=== PATIENT | female | born 1995 | race Caucasian/White ===

== ENCOUNTER 2024-08-03 10:48 | Outpatient (REF) | payer OTHER, SELFPAY ==
--- NOTE | 2024-08-03 14:33 | MHC.AU.MED ---
Medical Clearance for Hearing Instrumentation Date: 08/03/24 Patient Name: Rico Olson Date of : 1995 Primary Care Provider: Pamela Pedro MD Referring Provider: Kalpana Ybarra PA-C We have seen your patient on 08/03/24 and have determined that they are a candidate for amplification (See accompanying report). Specifically, they would benefit from: Hearing aid use in both ears There is a statute that addresses Medical Evaluation Requirements prior to fitting a patient with a hearing aid. According to [place] statute 265 CMR:6.03(1), (a) General. Except as provided in 265 CMR 6.03(1)(b), a wool shearing supervisor shall not sell a hearing aid unless the prospective user has presented to the wool shearing supervisor a written statement signed by a licensed physician that states that the patient's hearing loss has been medically evaluated and the patient may be considered a candidate for a hearing aid. The medical evaluation must have taken place within the preceding six months. Please note: Due to the [place] Statute referenced above, we cannot accept a signature other than that of a licensed physician. HEIDE and PA signatures cannot be accepted. I am in agreement with the above recommendation. There is no medical contraindication for hearing instrumentation. Physician Signature Date Physician Name (Printed)
== END 2024-08-03 10:49 | disposition home or self-care (01) ==
LOC: HO.SH 10:48
PROVIDERS: PCP Internal Medicine; Visit Provider Physician Assistant
DX: Z01.118 Encounter for examination of ears and hearing with other abnormal findings (principal); H90.3 Sensorineural hearing loss, bilateral
CPT/HCPCS: 92557; 92567; 92588; 92591

== ENCOUNTER 2024-09-24 14:57 | Outpatient (REF) | payer OTHER, SELFPAY | END 2024-09-24 14:58 | disposition home or self-care (01) | LOC: HO.HAP 14:57 | PROVIDERS: Visit Provider Internal Medicine | DX: Z46.1 Encounter for fitting and adjustment of hearing aid (principal); H90.3 Sensorineural hearing loss, bilateral | CPT/HCPCS: V5011; V5020; V5160; V5261 ==

== ENCOUNTER 2025-02-05 11:04 | Outpatient (REF) | payer OTHER, SELFPAY ==
--- OUTSIDE RECORDS SUMMARY | 2025-02-05 12:10 | XMS_ITS | Encounter Summary ---
Author Organization [employer] Address [address] [place] [address] 7 [place] [address] Care Team Providers Care Efficiency Engineer Name Role Phone Unavailable Primary Care Provider Unavailabl e Reason for Visit * Reason Comments Dental Pain Pain LL. Recently re alized that pt is graining teeth. Believes there's a cavity forming due to possible fracture in the tooth. Pt an see the tooth darkening from the side and can see it from the occusal side. Encounter Details Date Type Department Care Team (Late st Contact Info) Description 02/04/2025 3:00 PM EDT Office Visit [facility] AD[facility] [address] [place] [address] Patricia Simpson DMD Social History Tobacco Use Types Packs/Day Years Used Date Smoking Tobacco: Never Assessed Comments Unknown Sex and Gender Information Value Date Recorded Sex Assigned at Female 08/06/2022 10:31 AM EDT Legal Sex Female 10:31 AM EDT Gender Identity Female 08/06/2022 10:31 AM EDT Sexual Orientation Straight 08/06/2022 10 :31 AM EDT documented as of this encounter Last Filed Vital Signs Vital Sign Reading Time Taken Comments Blood Pressure 100/70 02/04/2025 3:25 PM EDT Pulse - - Temperature - - Respiratory Rate - - Oxygen Saturation - - Inhaled Oxygen Concentration - - Weight - - Height - - Body Mass Index - - documented in this encounter Progress Notes * Patricia Simpson DMD - 02/04/2025 3:00 PM EDT Dental procedures in this visit D0140 - LIMITED ORAL EVALUATION - PROBLEM FOCUSED 19 (Completed) Service provider: Patricia Simpson DMD Billing provider: Akash Gong DDS [id number] - INTRAORAL - PERIAPICAL FIRST RADIOGRAPHIC IMAGE 19 (Completed) Service provider: Patricia Simpson DMD Billing provider: Akash Gong DDS [id number] - BITEWING - SINGLE RADIOGRAPHIC IMAGE (Completed) Service provider: Patricia Simpson DMD Billing provider: Akash Gong DDS [id number] - CASE PRESENTATION, DETAILED AND EXTENSIVE TREATMENT PLANNING (Completed) Service provider: Patricia Simpson DMD Billing provider: Akash Gong DDS Patient ID: Rico Olson is a 29 y.o. female. Time Out: Date: 02/04/2025 Location: [facility] Tooth: #19 Procedure: Exam and X-rays Verified the above with patient, assistant professor of nursing, and provider. Confirmed via patient's chart, intraorally and by radiographs. Car Inspector: not applicable 29 y.o. y/o female presents for limited exam with Dr. Patricia Simpson DMD Medical history: Reviewed in EHR Vitals: Blood pressure 100/70. Allergies: Reviewed in EHR Medications: Reviewed in EHR Radiographs taken: BW and PA CHIEF COMPLAINT: My tooth hurts at night and there is a black dot I think I have a cavity. Discussion: Patient presents to [facility] RE: tooth #19. Patient reports there is a black dot on the tooth and believes she has a cavity. Patient states the pain has been developing for the last few days. Clinical and radiographic examination shows MO caries on tooth #19 approximating the pulpal tissue. Slight pain on palpation. Pain on percussion of MB cusp. No intraoral swelling, sinus tracts or trouble breathing. Widening of PDL noted and no evidence of PARL. Recommended caries control and likely RCT on tooth #19. Due to complexity of canals, recommended caries control be performed on a Saturday while Dr. Moon is present. Patient understands and accepts all treatment recommendations and wishes to move forward with proposed treatment plan. All patient questions answered. Patient comfortable upon dismissal. RX: Acetaminophen and Ibuprofen NV: Caries Control / RCT #19 Provider: Dr. Patricia Simpson DMD Dental Master Of Ceremonies: Aundrea Avalos Attending: Dr. Akash Gong DDS * Akash Gong DDS - 02/04/2025 3:00 PM EDT Reviewed and signed. documented in this encounter Plan of Treatment Upcoming Encounters Date Type Department Care Team (Late st Contact Info) Description 02/15/2025 8:00 AM EDT Office Visit [facility] [address] [place] [address] Patricia Simpson DMD Scheduled Orders Name Type Priority Associated Diagnoses Orde r Schedule 19 MO 19 MO RESIN-BASED COMPOSITE - 2 SURF, POSTERIOR Dental Routine [address] arting 02/04/2025 19 19 ENDODONTIC THERAPY, MOLAR TOOTH Dental Routine 1 Occurrenc es starting 02/04/2025 documented as of this encounter Procedures Procedure Name Priority Date/Time Associated Diagnosis Comments 19 LIMITED ORAL EVALUATION - PROBLEM FOCUSED Routine 02/04/2025 3:00 PM EDT 19 INTRAORAL - PERIAPICAL FIRST RADIOGRAPHIC IMAGE Routine 02/04/2025 3:00 PM EDT CASE PRESENTATION, DETAILED AND EXTENSIVE TREATMENT PLANNING Routine 02/04/2025 3:00 PM EDT BITEWING - SINGLE RADIOGRAPHIC IMAGE Routine 02/04/2025 3:00 PM EDT documented in this encounter Visit Diagnoses Not on filedocumented in this encounter
--- OUTSIDE RECORDS SUMMARY | 2025-02-05 12:10 | XMS_ITS | Data Portability ---
Author Organization [place] - [facility], Allergy Address [address] [place] [address] Care Team Providers Care Volleyball Commentator Name Role Phone TRACEY CORDOVA Primary Care Provider [phone] Assessment Encounter Date Assessment Date Assessment LastModified by Organization Details LastModified Time 01/06/2025 01/06/2025 29yo female with sensorineural hearing loss and amplification presents for evaluation of the ears. She reports gradual hearing loss over 3 years, since khurram COVID-19. She reports intermittent bilateral otalgia, tinnitus, and room-spinning dizziness. TMs are normal to inspection. Audiometric testing demonstrates symmetrical normal sloping to severe sensorineural hearing loss with normal tympanometry. MRI of the IACs is not indicated as SNHL is symmetrical and otologic symptoms are bilateral. patient declined Sm[place]-Hallpike maneuver today, as it induces disequilibrium for 1-2 days. History is consistent with BPPV. Will refer patient to [facility] for vestibular rehabilitation. Discussed that her intermittent otalgia is consistent with underlying TMJ. Reviewed TMJ precautions and recommended soft food diet and mouthguard. Patient will return to [facility] for hearing aid adjustment. She will follow-up in 6 months for reevaluation with hearing test first. [email or web address] Not available 01/06/2025 12:12:49 Plan of Treatment Reminders Order Date Submit Date Provider Last Modified By Organization Details Last Modified Time Details Appointments Hearing Test 2024 10:30A M Hearing Test Not available Not available Not available Establish ed 15 2024 11:00A M LISA ELLIOTT PA-C Not available Not available Not available Lab None recorded. Referral vestibula r therapy referral 2024 025 [facility] Physical Therapy - [place], [address], 01/06/2025 12:24:58 Procedures None recorded. Surgeries None recorded. Imaging None recorded. Medication Orders None recorded. Patient TargetsNo targets recorded. Patient InstructionsNo instructions recorded. Reason for Referral Vestibular Therapy Referral for Benign paroxysmal positional vertigo Referring Physician: Lisa Elliott, Otolaryngology, Encounter Date: 01/06/2025 Results Created Date Observation Date Name Description Value Unit Range Abnormal Flag Note LastModifiedBy Organization Detail LastModifiedTime 01/07/20 audio gram No observ ation record ed. BARCODE Not Available 2024 17:50:59 Result Notes None recorded. Problems Name Problem SNOMED Code Status Onset Date Resolution Date Notes Provider Name and Address Organization Details Recorded Time Sensorineur al hearing loss 96462224 Active 2024 Delores bryant [place] - [facility] 11:06:30 Benign paroxysmal positional vertigo 557212366 Active 2024 LISA ELLIOTT PA-C [address] [place] [address], [place], [phone], [facility] - [facility] 11:52:38 Bilateral tinnitus 0367007971559 Active 2024 LISA ELLIOTT PA-C [address] [place] [address], [place], [phone], [facility] - [facility] 12:04:57 Problem Notes None recorded. Procedures Surgical History Date Name Laterality Status Provider Name and Address Organization Details Recorded Time 01/06/2025 Comp Audio with Tymps (18506 & 75809) completed Delores Cadena [place] - [facility] 01/06/2025 11:06:25 Imaging Results Imaging Date Name Status LastModified by Organiz ation Details LastModified Time 01/06/2025 audiogram completed BARCODE Information no t available 01/06/2025 17:50:59 Procedure Notes None recorded. Medical Equipment None Reported. Allergies No known drug allergies Medications Name Sig Start Date Stop Date Status Note LastModified by Organization Details LastModified Time lamotrigine 150 mg tablet TAKE 1 TABLET BY MOUTH ONCE A DAY AT BEDTIME active Not Available Not Available No t Available fluconazole 150 mg tablet TAKE ONE TABLET TODAY AND REPEAT IN 3 DAYS IF NO IMPROVEMENT active Not Available Not Available Not Available clonazepam 0.5 mg tablet TAKE 1 TABLET BY MOUTH DAILY NEEDED FOR ANXIETY DIRECTED active Not Available Not Available Not Available venlafaxine ER 150 mg capsule,exte nded release 24 hr TAKE 1 CAPSULE BY MOUTH EVERY DAY IN THE MORNING DIRECTED active Not Available Not Available No t Available Vitals Date Recorded Body height Body mass index (BMI) Body weight Provider Name and Address Organization Details Last Updated DateTime 01/06/2025 162.56 cm 34 kg/m2 99181.29 g SAMIA ALMARAZ [place] - [facility] 01/06/2025 11:15:33 Social History Question Answer Notes LastModified by Organizat ion Details LastModified Time Tobacco Smoking Status Never Smoker SAMIA bryant [place] - [facility] 01/06/2025 11:14:18 What Is Your Level Of Alcohol Consumption? None [email or web address] Information not available 01/06/2025 Sex: Unknown Functional Status None recorded. Mental Status None recorded. Family History Nothing Reported. Medical History No medical history recorded. Gynecological HistoryNo gynecological history recorded. Obstetrics History GPAL:G 0 P 0 0 0 0 Past Encounters Encounter ID Performer Location Encounter Start Date Encounter Closed Date Diagnosis/Indication Diagnosis SNOMED-CT Code Diagnosis ICD10 Code Diagnosis Note [id number] LISA ELLIOTT PA-C [facility] [address] [address] 01/06/2025 10:30:54 01/06/2025 11:58:51 Sensorineural hearing loss 81579098 H90.5 Audiologic al evaluation results: Right ear: {{Normal* Normal through 2 kHz Mild M oderate Mo derately-s evere Cass re Profoun d}} {{hearing hearing. s loping to a mild slopi ng to a moderate s loping to moderately severe slo ping to severe* sl oping to profound f lat high frequency low frequency mid frequency cookie bite fernandez curve}} {{with sen sorineural hearing loss with* cond uctive hearing loss with mixed hearing loss with}} {{excellen t* good fa ir poor no measurable }} word recognitio n. Left ear: {{Normal* Normal through 2 kHz Mild M oderate Mo derately-s evere Cass re Profoun d}} {{hearing hearing. s loping to a mild slopi ng to a moderate s loping to moderately severe slo ping to severe slo ping to profound* flat high frequency low frequency mid frequency cookie bite fernandez curve}} {{with sen sorineural hearing loss with* cond uctive hearing loss with mixed hearing loss with}} {{excellen t* good fa ir poor no measurable }} word recognitio n. Tympanomet ry: Right Ear:{{Type A* Type A with rounded peak Type A with double peak Type As Type As with rounded peak Type Ad Type C Type C, shallow & rounded peak Type B Type B with large volume Cou ld not maintain a hermetic seal}} Left Ear:{{Type A* Type A with rounded peak Type A with double peak Type As Type As with rounded peak Type Ad Type C Type C, shallow & rounded peak Type B Type B with large volume Cou ld not maintain a hermetic seal}} Benign par oxysmal positional vertigo 221890885 H81.10 The pathophysi ology of BPPV was discussed in detail. Patient was provided with a referral to [facility] for Daniel maneuvers and vestibular therapy. We discussed the fact that treatment of BPPV can require anywhere from 1 to 6 treatments for successful results, and has approximat davis 95% success rate in eliminatin g symptoms. BPPV can recur and if the classic positional ly induced symptoms do recur, patient can call for further referrals. Bilateral tinnitus [id number] [id number] H93.13 Health Concerns Section Related Observation LastModified by Organization Detai ls LastModified Time None Recorded Concern Status LastModified by Organization Details LastModified Time None Recorded Advance Directives Directive None Recorded Payers Encounter Date Sequence Insurance Name Policy Number Policy Barnes Covered Member ID Barnes Member ID Guarantor Name 01/06/2025 1 [facility] - [facility] (MEDICAID REPLACEMENT - HMO) CHUY Sumeyye Elevli [id number] Sumeyye Elevli Notes Date Note Type Note Provider Name and Address Organization Details Recorded Time 01/06/2025 text/html 29yo female with amplification presents for evaluation of the ears. She reports gradual hearing loss over 3 years, that started when she contracted COVID-19. Her current hearing aids were dispensed by [facility]. She reports intermittent ear pain and tinnitus bilaterally. She reports history of benign paroxysmal positional vertigo. She describes the sensation as room-spinning dizziness. Her disequilibrium lasts 1-2 days and she has associated wooziness and nausea. Patient denies ear drainage. No prior history of ear infections or ear surgeries. No history of loud noise exposure. No known family history of hearing loss. No Qtip use. LISA ELLIOTT PA-C [address] [place] [address], [phone], [facility] - [facility] 01/06/2025 12:13:24 OBGyn Episode No OBEpisode recorded.
--- OUTSIDE RECORDS SUMMARY | 2025-02-05 12:10 | XMS_ITS | Encounter Summary ---
Author Organization [employer] Address [address] [facility] 7 [place] [address] Care Team Providers Care Cooky Packer Name Role Phone Unavailable Primary Care Provider Unavailabl e Encounter Details Date Type Department Care Team (Latest Contact Info) Description 11/12/2018 Abstract [facility] CONVERSIONS Dental, Provider, DDS Social History Tobacco Use Types Packs/Day Years Used Date Smoking Tobacco: Never Assessed Comments Unknown Sex and Gender Information Value Date Recorded Sex Assigned at Female 08/06/2022 10:31 AM EDT Legal Sex Female 10:31 AM EDT Gender Identity Female 08/06/2022 10:31 AM EDT Sexual Orientation Straight 08/06/2022 10 :31 AM EDT documented as of this encounter Plan of Treatment Upcoming Encounters Date Type Department Care Team ( st Contact Info) Description 02/15/2025 8:00 AM EDT Office Visit [facility] ADULT DENTAL [address] [place] [address] Patricia Simpsno DMD documented as of this encounter Visit Diagnoses Not on filedocumented in this encounter
--- OUTSIDE RECORDS SUMMARY | 2025-02-05 12:10 | XMS_ITS | Clinical Summary ---
Author Organization [employer] Address [address] [place] [address] 7 [place] [address] Care Team Providers Care Wall Steamer Name Role Phone Unavailable Primary Care Provider Unavailabl e Allergies No known active allergies Medications lamoTRIgine (LaMICtal) 150 MG tablet TAKE 1 TABLET BY MOUTH ONCE A DAY AT BEDTIME 04/24/2023 Active venlafaxine XR (Effexor XR) 150 MG 24 hr capsule 1 CAPSULE DIRECTED EVERY MORNING 04/28/2023 Active acetaminophen (Tylenol) 500 MG tablet Take 1 tablet (500 mg) by mouth every 6 (six) hours if needed for mild pain for up to 20 doses. 20 tablet 02/04/2025 Active ibuprofen 600 MG tablet Take 1 tablet (600 mg) by mouth every 6 (six) hours if needed for mild pain for up to 20 doses. 20 tablet 02/04/2025 Active Active Problems Problem Noted Date Diagnosed Date Sensorineural hearing loss 01/06/2025 Bilateral tinnitus 01/06/2025 Benign paroxysmal positional vertigo 01/06/2025 Vitamin D insufficiency 03/20/2022 Obesity (BMI 30.0-34.9) 03/20/2022 Pneumonia due to COVID-19 virus 07/06/2021 Overview (02/04/2025): 05/27 with acute respiratory failure Depression 07/02/2016 Anxiety 07/02/2016 Shoulder pain, bilateral 12/21/2014 Back pain of thoracolumbar region 12/21/2014 Encounters Date Type Department Care Team Description 02/04/2025 3:00 PM EDT Office Visit [facility] ADULT DENTAL [address] [place] [address] Patricia Simpson DMD 12/11/2024 Telephone [facility] ADULT DENTAL [address] [place] [address] Owen Fox unable to post insurance from Last 3 Months Social History Tobacco Use Types Packs/Day Years Used Date Smoking Tobacco: Never Assessed Comments Unknown Sex and Gender Information Value Date Recorded Sex Assigned at Female 08/06/2022 10:31 AM EDT Legal Sex Female 10:31 AM EDT Gender Identity Female 08/06/2022 10:31 AM EDT Sexual Orientation Straight 08/06/2022 10 :31 AM EDT Last Filed Vital Signs Vital Sign Reading Time Taken Comments Blood Pressure 100/70 02/04/2025 3:25 PM EDT Pulse - - Temperature - - Respiratory Rate - - Oxygen Saturation - - Inhaled Oxygen Concentration - - Weight - - Height - - Body Mass Index - - Plan of Treatment Upcoming Encounters Date Type Department Care Team (Late st Contact Info) Description 02/15/2025 8:00 AM EDT Office Visit [facility] ADULT DENTAL [address] [place] [address] Patricia Simpson DMD Health Maintenance Due Date Last Done Comments Depression Screening 1996 HIV Screening 1996 SDOH Screening 1996 Alcohol/Substance Use Screening 2008 Tobacco Screening 2008 Family Planning (PISQ) 2011 Hepatitis C Screening 2014 Pap Smear 2017 Dental X-Ray: Full Mouth 12/27/2021 12/26/2018, 11/07 Dental Oral Exam 09/12/2022 03/12/2022, 03/2019, 08/27/2017, Additional history exists Dental Prophylaxis 09/12/2022 03/12/2022, 09/18/2017 COVID-19 Vaccine ( season) 2024 10/08/2021, 09/17/2021 Influenza Vaccine (#1) 2024 DTaP/Tdap/Td Vaccines (7 - Td or Tdap) 10/10/2025 10/10/2015, 06/11/2001, 05/21/1998, Additional history exists Dental X-Ray: Bitewings 02/05/2026 02/05/20, 03/12/2022, 11/12/2018, Additional history exists Zoster Vaccines (1 of 2) 2046 RSV Patients and Patients Aged 60 years or older (1 - 1-dose 75+ series) 2071 IPV Vaccines Completed 05/21/1998, 05/07, 03/21/1997, Additional history exists Hepatitis B Vaccines Completed 03/23/2002, 12/24/2001, 07/31/2001 Meningococcal Vaccine Completed 10/10/2015, 013 HIB Vaccines Aged Out No longer eligi ble based on patient's age to complete this topic HPV Vaccines Aged Out No longer eligi ble based on patient's age to complete this topic Hepatitis A Vaccines Aged Out No long er eligible based on patient's age to complete this topic Pneumococcal Vaccine: Pediatrics (0 to 5 Years) and At-Risk Patients (6 to 49) Years) Aged Out No longer eligible based on patient's age to complete this topic RSV under 20 months Aged Out No longe r eligible based on patient's age to complete this topic Rotavirus Vaccines Aged Out No longer eligible based on patient's age to complete this topic Procedures Procedure Name Priority Date/Time Associated Diagnosis Comments CASE PRESENTATION, DETAILED AND EXTENSIVE TREATMENT PLANNING Routine 02/04/2025 3:00 PM EDT BITEWING - SINGLE RADIOGRAPHIC IMAGE Routine 02/04/2025 3:00 PM EDT 19 INTRAORAL - PERIAPICAL FIRST RADIOGRAPHIC IMAGE Routine 02/04/2025 3:00 PM EDT 19 LIMITED ORAL EVALUATION - PROBLEM FOCUSED Routine 02/04/2025 3:00 PM EDT PROPHYLAXIS - ADULT Routine 03/12/2022 1 2:00 AM EDT PERIODIC ORAL EVALUATION - ESTABLISHED PATIENT Routine 03/12/2022 12:00 AM EDT PANORAMIC RADIOGRAPHIC IMAGE Routine 12/26/2018 12:00 AM EDT from Last 3 Months or Most Recently Relevant to Health Maintenance [facility] DENT[facility] - [facility] PARTIAL (MEDICAID) DENTAL - [facility] FULL (MEDICAID)
--- OUTSIDE RECORDS SUMMARY | 2025-02-05 12:10 | XMS_ITS | Encounter Summary ---
Author Organization [employer] Address [address] [place] [address] [address] [place] [address] Care Team Providers Care Cert Pharmacy Tech Name Role Phone Unavailable Primary Care Provider Unavailabl e Reason for Visit * Reason Onset Date Comments unable to post insurance 12/11/2024 Encounter Details Date Type Department Care Team (Late st Contact Info) Description 12/11/[address] [facility] ADULT DENTAL [address] [place] [address] Owen Fox [address] [place], [place] [phone] unable to post insurance Social History Tobacco Use Types Packs/Day Years Used Date Smoking Tobacco: Never Assessed Comments Unknown Sex and Gender Information Value Date Recorded Sex Assigned at Female 08/06/2022 10:31 AM EDT Legal Sex Female 10:31 AM EDT Gender Identity Female 08/06/2022 10:31 AM EDT Sexual Orientation Straight 08/06/2022 10 :31 AM EDT documented as of this encounter Miscellaneous Notes * Telephone Encounter - Lakshmi Self - 12/11/2024 10:18 AM EST Patient has a 1pm emergency visit. Unable to post insurance. portal not running on PAR side documented in this encounter Plan of Treatment Upcoming Encounters Date Type Department Care Team (Late st Contact Info) Description 02/15/2025 8:00 AM EDT Office Visit [facility] ADULT DENTAL [address] [place] [address] Patricia Simpson DMD documented as of this encounter Visit Diagnoses Not on filedocumented in this encounter
--- OUTSIDE RECORDS SUMMARY | 2025-02-05 12:10 | XMS_ITS | Encounter Summary ---
Author Organization [employer] Address [address] [facility] [address] [place] [address] Care Team Providers Care Adhesive Sprayer Name Role Phone Unavailable Primary Care Provider Unavailabl e Encounter Details Date Type Department Care Team (Latest Contact Info) Description 03/12/2022 Abstract [facility] CONVERSIONS Dental, Provider, DDS Social History Tobacco [...] Description 02/15/2025 8:00 AM EDT Office Visit [facility] ADULT DENTAL [address] [place] [address] Patricia Simpson DMD documented as of this encounter Visit Diagnoses Not on filedocumented in this encounter
--- OUTSIDE RECORDS SUMMARY | 2025-02-05 12:10 | XMS_ITS | Clinical Summary ---
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 Active venlafaxine XR (EFFEXOR-XR) 150 mg 24 hr capsule Take 1 capsule (150 mg total) by mouth 1 (one) time each day. Active cholecalciferol (VITAMIN D-3) 25 mcg (1,000 unit) tablet Take by mouth. Ac tive cyanocobalamin, vitamin B-12, (VITAMIN B-12 ORAL) Take by mouth. Activ e clonazePAM (KlonoPIN) 0.5 mg tablet 6 Active fluconazole (Diflucan) 150 mg tablet Take one tablet today and Repeat in 3 days if no improvement 2 tablet 5 Active Active Problems Problem Noted Date Diagnosed Date Obesity (BMI 30.0-34.9) 03/20/2022 Vitamin D insufficiency 03/20/2022 Pneumonia due to COVID-19 virus 07/06/2021 Overview (08/10/2024): 05/27 with acute respiratory failure Anxiety 07/02/2016 Depression 07/02/2016 Back pain of thoracolumbar region 12/21/2014 Shoulder pain, bilateral 12/21/2014 Encounters Date Type Department Care Team Description 01/18/2025 Telephone Obstetrics & Gynecology - [address] [phone] Amelie Peace CNM Pelvic Pain 12/10/2024 8:45 AM EST Office Visit Obstetrics & Gynecology - [address] [phone] Amelie Peace CNM Acute vaginitis (Primary Dx); Pelvic pain 12/08/2024 Telephone Obstetrics and Gynecology [address] [phone] Carol Edwards MD Vaginal Discharge from Last 3 Months Immunizations Name Administration Dates Next Due DTaP (Infanrix) 6wks to less than 7yo ,05/21/1998,05/21/1997,03/21,1996 Hepatitis B Pediatric (Enger ix B; Recombivax HB) to less than 20 yo 03/23/2002,12/24/2001,07/31/2001 IPV Inactivated polio (Ipol) 6wks and older 05/21/1998,05/21/1997,03/21/1997,12/19 MMR, measles mumps and rubel la Live (Priorix; M-M-R II) 12mo and older 06/11/2001,06/07/1998 Meningococcal MCV4P 10/10/2015,08/20/2013 Fios SARS-CoV-2 COVID-19, mRNA, LNP-S, preservative free 10/08/2021,09/17/2021 Tdap Tetanus diptheria acell ular pertussis (Boostrix; Adacel) 7yo and older 10/10/2015 Varicella live (Varivax) 12m o and older 08/20/2013,06/11/2001 Surgical History Surgery Date Site/Laterality Comments NO PAST SURGERIES Medical History Medical History Date Comments Pneumonia due to COVID-19 virus 07/06/202105/27 with acute respiratory failure Depression 07/02/2016 Vitamin D insufficiency 03/20/2022 Anxiety 07/02/2016 Family History Relation Name Status Comments Father Alive Maternal Grandfather Alive Maternal Grandmother Alive Mother Alive Paternal Grandfather Alive Paternal Grandmother Alive Social History Tobacco Use Types Packs/Day Years Used Date Smoking Tobacco: Never Smokeless Tobacco: Never Alcohol Use Standard Drinks/Week Comments No 0 (1 standard drink = 0.6 oz pur e alcohol) Comments No Sex and Gender Information Value Date Recorded Sex Assigned at Not on file Legal Sex Female 12:42 PM EST Gender Identity Not on file Sexual Orientation Not on file Occupation Industry Job Start Date Job End Date student Not on file Not on file Not on file Obstetrics History Para Term AB IAB SAB Ectopic Multiple Livin g Live Births 0 0 0 0 0 0 0 0 0 0 0 Last Filed Vital Signs Vital Sign Reading Time Taken Comments Blood Pressure 90/61 12/10/2024 8:54 AM EST Pulse 75 12/10/2024 8:54 AM EST Temperature - - Respiratory Rate - - Oxygen Saturation - - Inhaled Oxygen Concentration - - Weight 92.1 kg (203 lb 1.6 oz) 12/10/2024 8:54 A M EST Height 162.6 cm (5' 4 ) 12/10/2024 8:54 AM EST Body Mass Index 34.86 12/10/2024 8:54 AM EST Plan of Treatment Upcoming Encounters Date Type Department Care Team (Late st Contact Info) Description 02/09/2025 8:30 AM EDT Office Visit Obstetrics and Gynecology [facility] [address] [place] [phone] Dale Schwartz, [facility] [address] [place] [phone] Health Maintenance Due Date Last Done Comments Cervical Cancer Screening: Pap Smear 2017 Depression Screening 08/17/2020 HIV Screening 08/17/2020 Hepatitis C Screening 08/17/2020 Social Influencers of Health Screening 08/17/2020 COVID-19 Vaccine ( season) 2024 10/08/2021, 09/17/2021 Influenza Vaccine (Season Ended) 2025 DTaP,Tdap,and Td Vaccines (7 - Td or Tdap) 10/10/2025 10/10/2015, 06/11/2001, 05/21/1998, Additional history exists Cholesterol Screening (Lipid Panel) 05/09/2027 05/09/2022 IPV Vaccines Completed 05/21/1998, 05/07, 03/21/1997, Additional history exists MMR Vaccines Completed 06/11/2001, 06/07/1998 Hepatitis B Vaccines Completed 03/23/2002, 12/24/2001, 07/31/2001 Varicella Vaccines Completed 08/20/2013, 06/11/2001 Meningococcal ACWY Vaccine Completed 10/10/2015, Gonorrhea/Chlamydia Screening Discontinued 12/10/2024, 10/20/2015 HIB Vaccines Aged Out No longer eligi ble based on patient's age to complete this topic HPV Vaccines Aged Out No longer eligi ble based on patient's age to complete this topic Hepatitis A Vaccines Aged Out No long er eligible based on patient's age to complete this topic Meningococcal B Vaccine Aged Out No l onger eligible based on patient's age to complete this topic Pneumococcal Vaccine: Pediatrics (0 to 5 Years) and At-Risk Patients (6 to 64 Years) Aged Out No longer eligible based on patient's age to complete this topic RSV Immunization Patients Under 20 months Aged Out No longer eligible based on patient's age to complete this topic Procedures Procedure Name Priority Date/Time Associated Diagnosis Comments US PELVIS TRANSVAGINAL NON OB Routine 12/25/2024 2:07 PM EDT TRICHOMONAS VAGINALIS ANTIGEN Routine 12/10/2024 9:35 AM EST Acute vaginitis CULTURE URINE Routine 12/10/2024 9:35 AM EST Pelvic pain CHLAMYDIA TRACHOMATIS AND NEISSERIA GONORRHOEAE PCR Routine 12/10/2024 9:35 AM EST Pelvic pain WET PREP, GENITAL Routine 12/10/2024 9:3 5 AM EST Acute vaginitis LIPID PANEL Routine 05/09/2022 from Last 3 Months or Most Recently Relevant to Health Maintenance Results * US Pelvis Transvaginal Non OB (12/25/2024 2:07 PM EDT) Anatomical Region Laterality Modality Body Ultrasound us Historical Provider MD CHRISTOPHER US PROCEDURES Final R esult * Trichomonas vaginalis antigen (12/10/2024 9:35 AM EST) Trichomonas vaginalis Negative Negative 12/10/2024 1:14 PM EST [facility] Swab Vaginal structure / Unknown Non-blood Collection / Unknown 12/10/2024 9:35 AM EST 12/10/2024 12:09 PM EST [facility] MICROBIOLOGY - GENERAL OR DERABLES Final Result Performing Organization Address [facility]/ZIP Co de Phone Number [facility] [address] [place] [address], [place] [phone] * Chlamydia trachomatis and Neisseria gonorrhoeae molecular study (12/10/2024 9:35 AM EST) Neisseria gonorrhoeae PCR Negative Negative LAB MOLECULAR DIAGNOSTICS METHOD 12/11/2024 6:14 AM EST [facility] Chlamydia trachomatis PCR Negative Negative LAB MOLECULAR DIAGNOSTICS METHOD 12/11/2024 6:14 AM EST [facility] Swab Cervix uteri structure / Unknown Non-blood Collection / Unknown 12/10/2024 9:35 AM EST 12/10/2024 12:09 PM EST [facility] MICROBIOLOGY - GENERAL OR DERABLES Final Result Performing Organization Address [facility] de Phone Number [facility] [address] [place] [address], [place] [phone] * (ABNORMAL) Wet prep, genital (12/10/2024 9:35 AM EST) Clue Cells, Wet Prep Negative Negative 12/10/2024 1:07 PM EST [facility] Yeast, Wet Prep Positive(A) Negative 12/10/2024 1:07 PM [facility] Trichomonas, Wet Prep Indeterminate Negative 12/10/2024 1:07 PM EST [facility] Comment:Refer to Trichomonas antigen. Swab Vaginal structure / Unknown Non-blood Collection / Unknown 12/10/2024 9:35 AM EST 12/10/2024 12:09 PM EST [facility] MICROBIOLOGY - GENERAL OR DERABLES Final Result Performing Organization Address [facility]/ZIP Co de Phone Number [facility] [address] [place] [address], * Culture urine (12/10/2024 9:35 AM EST) Culture, Urine No growth 12/11/2024 10:16 AM EST [facility] Urine Urine specimen obtained by clean catch procedure / Unknown Non-blood Collection / Unknown 12/10/2024 9:35 AM EST 12/10/2024 12:09 PM EST [facility] MICROBIOLOGY - GENERAL OR DERABLES Final Result Performing Organization Address [facility]/ZIP Co de Phone Number [facility] [address] [place] [address], [place] [phone] * (ABNORMAL) Lipid panel (05/09/2022) LDL/HDL Ratio 3 0 - 4 Triglycerides 59 0 - 150 mg/dL Cholesterol 179 0 - 200 mg/dL HDL 60 >=40 mg/dL LDL Cholesterol 108(A) 0 - 100 mg/dL Blood Venous blood specimen / Unknown Historical Provider LAB BLOOD ORDERABLES Kathy l Result from Last 3 Months or Most Recently Relevant to Health Maintenance Insurance [facility] [employer] Care Teams Field Artillery Cannoneer Relationship Specialty Start Date End Date Pamela Pedro MD [address] [place] [address] PCP - General Internal Medicine 10/09/19
--- NOTE | 2025-02-05 13:50 | MHC.AU.HA3 ---
Hearing Instrument Follow-Up- Binaural Date of Visit: 02/05/25 Right Ear: Brian, Model, Color, Serial Number: Oticon Intent 2 miniRITE Rerma begilbert S#[id number] Customer Support Executive Repair Warranty: 10/15/2027 Customer Support Executive Loss and Damage Warranty: 10/15/2027 [facility] Service Plan: 09/24/25 Battery Size: Rechargeable Machine Pan Greaser/Slim Tube: 2 60g Earmold/Dome/CShell/SlimTip:6mm open romero Type of Wax Guard: Minifit ProWax Dispensed By: [facility] Date of Fittin09/24/25 Left Ear: Brian, Model, Color, Serial Number: Oticon Intent 2 miniRITE R, erma begilbert [id number] Customer Support Executive Repair Warranty: 10/15/2027 Customer Support Executive Loss and Damage Warranty: 10/15/2027 [facility] Service Plan: 09/24/25 Battery Size: Rechargeable Machine Pan Greaser/Slim Tube: 2 60g Earmold/Dome/CShell/SlimTip: 6mm open romero Type of Wax Guard: Minifit ProWax Dispensed By: [facility] Date of Fittin09/24/24 Follow-Up Summary: Rico was fit with hearing aids in September 2024 and did not return for follow up. She reports wearing the hearing aids for a couple days before rejecting them due to hearing her own voice but not hearing others any better. Counseled extensively on adjustment to amplification. Increased gain from adaptation 1 to 3, explaining the importance of appropriate gain for speech perception. Encouraged consistent daily wear. Advised to return if feeling that further adjustment is needed after a few weeks of consistent wear. Recommendations: Recommendations: Hearing instrument follow-up or maintenance as needed. Diagnosis Code(s): Primary Diagnosis: H90.3 Bilateral Sensorineural Hearing Loss Signature: Provider: Rivka Shetty, [facility]
== END 2025-02-05 11:05 | disposition home or self-care (01) ==
LOC: HO.HAP 11:04
PROVIDERS: PCP Internal Medicine; Visit Provider Internal Medicine
DX: Z13.89 Encounter for screening for other disorder (principal)